=== PATIENT | male | born 1980 | race Caucasian/White ===

== ENCOUNTER 2016-11-17 07:31 | Emergency (ER) | payer SELFPAY ==
[~2016-11-17] VITALS: Ht 185.4 cm; Wt 89.8 kg
[~2016-11-17 07:31] MED LIST: BACT800T5 PO; CEPH500C3 PO
[2016-11-17 07:43] VITALS: BP 139/89; PULSE 124; RESP 18; TEMP 97.4; O2SAT 99
[2016-11-17] MEDS ORDERED: LIDOCAINE 1%/EPINEPHrine 1:100,000 SOLN 30 ML VIAL ONE (07:57)
[2016-11-17] MEDS ORDERED: LIDOCAINE 1%/EPINEPHrine 1:100,000 SOLN 20 ML VIAL INFIL ONE (08:00)
--- NOTE | 2016-11-17 08:16 | PD ---
HPI Chief Complaint: Skin Problem Time Seen by Provider: 07:51 Travel History International Travel<30 days: No Contact w/Intl Traveler<30days: No Traveled to known affect area: No History of Present Illness HPI Patient 36-year-old male admitted IV drug user last used 2 weeks ago presents emergency department with antecubital fossa abscess. Patient states he injected here 2 weeks ago. Denies any fever. States is feeling very anxious because he knows it's going to need to be drained. States she's never had abscesses like this before and he fever denies any systemic symptoms denies any chest pain. States symptoms been present for the past 3 days and rapidly worsening. PFSH Past Medical History Medical History: Denies Significant Hx Diminished Hearing: No Influenza Vaccination: No Social History Alcohol Use: Yes (3 X'S PER WEEK BEER, MIX DRINKS) Tobacco Use: Yes (1 PPD) Substance Use: Yes (HEROIN, COCAINE, WEED) Allergies-Medications (Allergen,Severity, Reaction): Coded Allergies: No Known Allergies (Verified , 11/17/14) Reported Meds & Prescriptions Reported Meds & Active Scripts Active Ibuprofen 600 Mg Tab 600 Mg PO Q6H PRN Keflex (Cephalexin) 500 Mg Cap 500 Mg PO Q6H 10 Days Bactrim DS (Sulfamethoxazole-Trimethoprim) 800-160 Mg Tab 2 Tab PO BID 10 Days Review of Systems Except as stated in HPI: all other systems reviewed are Neg Physical Exam Narrative GENERAL: Well-nourished, well-developed patient. Appears nontoxic and well. SKIN: There is a golf ball sized abscess on the left antecubital fossa, surrounding induration is outlined in ink, there is some erythema as well which does not extend significantly past the induration area. Significant fluctuance. No Osler nodes no splinter hemorrhages. HEAD: Normocephalic. EYES: No scleral icterus. No injection or drainage. NECK: Supple, trachea midline. No JVD or lymphadenopathy. CARDIOVASCULAR: Regular rate and rhythm without murmurs, gallops, or rubs. RESPIRATORY: Breath sounds equal bilaterally. No accessory muscle use. GASTROINTESTINAL: Abdomen soft, non-tender, nondistended. MUSCULOSKELETAL: No cyanosis, or edema. BACK: Nontender without obvious deformity. No CVA tenderness. Data Data Last Documented VS Vital Signs Date Time Temp Pulse Resp B/P Pulse Ox O2 Delivery O2 Flow Rate FiO2 7/15/17 08:50 98 18 128/84 99 21 11/17/16 07:43 97.4 Orders Ed Poc Ultrasound (11/17/16 ) Lidocai-Epi 1%-1:100,000 Inj (Xylocaine- (11/17/16 08:00) Lidocai-Epi 1%-1:100,000 Inj (Xylocaine- (11/17/16 07:57) Ibuprofen (Motrin) (11/17/16 09:00) Wound Culture And Gram Stain (11/17/16 09:00) MDM Medical Decision Making Medical Screen Exam Complete: Yes Emergency Medical Condition: Yes Differential Diagnosis Antecubital abscess, IV drug use, sepsis unlikely. Narrative Course Patient was roomed in the emergency department, initially tachycardic on triage she states she is very anxious as he knows he was going to need to be cut, repeat vital signs showed that a heart rate is closer to normal. Patient after bedside ultrasound was insidious and drained, wound culture was sent. Discussed with the patient to return to emergency department in 48 hours for a wound check removal of packing. Antibiotic are prescribed. Discussed signs symptoms that should prompt earlier return to the ER including fever chest pain or shortness of breath. Her blood understanding and agreement. Discussed need for cessation of IV drug abuse. Recommended following up with [facility]. He is stable for discharge. Procedures Procedure Narrative ULTRASOUND: Bedside ultrasound performed of the left antecubital fossa, shows significant purulent fluid collection measuring approximately 2 x 2 x 2 cm subcutaneously, cobblestoning. There is an underlying vein but the abscess is amenable to ER drainage. INCISION AND DRAINAGE: After all risks benefits competitions were discussed with the patient he verbally consented to the procedure. Patient's left antecubital abscess was prepped with iodine, was infiltrated with 1% with epinephrine to a total of 5 cc, a #11 blade was used to make a incision through the skin, approximately a quarter of a cup of purulent material was obtained, wound culture was obtained and sent. Blunt dissection used to break up loculations. Patient tolerated the procedure quite well, hemostasis achieved and less than 10 cc of blood loss. Was packed with half-inch iodoform and dressed with a clean dressing. Diagnosis Primary Impression: Abscess Additional Instructions: Soap and water to the wound, if the packing falls out leave it out, return to the emergency department in 48 hours for wound check and packing removal. The patient developed fever worsening redness the site return to the emergency department. Change dressing twice per day. Med/Other Pt SpecificInfo: Prescription(s) given Scripts Ibuprofen 600 Mg [id number] Mg PO Q6H PRN (Pain/Inflammation) #20 TAB Ref 0 Prov:Mick Jerome MD 11/17/16 Cephalexin (Keflex)500 Mg Edd025 Mg PO Q6H 10 Days Ref 0 Prov:Mick Jerome MD 11/17/16 Sulfamethoxazole-Trimethoprim (Bactrim DS)800-160 Mg Tab2 Tab PO BID 10 Days Ref 0 Prov:Mick Jerome MD 11/17/16 Disposition: 01 DISCHARGE HOME Condition: Stable Mick Jerome MD Nov 17, 2016 08:16
[2016-11-17] MEDS ORDERED: BACT800T5 PO (08:48)
[2016-11-17] MEDS ORDERED: CEPH-460 PO (08:48)
[2016-11-17] MEDS ORDERED: IBUP-232 PO (08:49)
[2016-11-17 08:50] VITALS: BP 128/84
[2016-11-17] MEDS ORDERED: IBUPROFEN 600 MG TAB PO ONE (09:00)
== END 2016-11-17 08:59 | disposition home or self-care (01) ==
LOC: PHEFT 07:31
DX: L02.414 Cutaneous abscess of left upper limb (principal); B95.4 Other streptococcus as the cause of diseases classified elsewhere; B96.89 Other specified bacterial agents as the cause of diseases classified elsewhere
CPT/HCPCS: 10061; 87070; 87077; 87205

== ENCOUNTER 2017-08-18 14:14 | Emergency (ER) | payer SELFPAY ==
[~2017-08-18] VITALS: Ht 185.4 cm; Wt 86.0 kg
[~2017-08-18 14:14] MED LIST changes: +CEPH-460 PO; -CEPH500C3 PO; +IBUP-232 PO
[2017-08-18 14:20] VITALS: BP 125/69; PULSE 115; RESP 16; TEMP 97.8; O2SAT 95
--- NOTE | 2017-08-18 14:49 | PD ---
HPI Chief Complaint: OD/ Ingestion Time Seen by Provider: 14:32 Travel History International Travel<30 days: No Contact w/Intl Traveler<30days: No Traveled to known affect area: No History of Present Illness HPI 37yo M presents to the ED after heroin overdose. Pt said he injected heroin today and next thing he know, [facility] was at his house. As per triage note, pt was unresponsive with RR of 4 after injecting heroin and 0.4mg of narcan was given and pt responded well. Pt was GCS 15 with RR 14-16 on arrival. Pt is AAOx3 and has no signs of trauma. Pt admits to drinking alcohol and using heroin today and had an episode of vomit. Feels a little nauseous but denies any fever, chest pain, sob, abdominal pain, focal weakness or numbness. PFSH Past Medical History Medical History: Denies Significant Hx Cardiovascular Problems: No Diminished Hearing: No Gastrointestinal Disorders: No Genitourinary: No Musculoskeletal: No Neurologic: No Respiratory: No Tetanus Vaccination: > 5 Years Influenza Vaccination: No Past Surgical History Surgical History: No Previous Surgery Social History Alcohol Use: Yes (3 X'S PER WEEK BEER, MIX DRINKS) Tobacco Use: Yes (1 PPD) Substance Use: Yes (HEROIN, COCAINE, WEED) Allergies-Medications (Allergen,Severity, Reaction): Coded Allergies: No Known Allergies (Verified Adverse Reaction, Unknown, 08/18/17) Reported Meds & Prescriptions Reported Meds & Active Scripts Active No Active Prescriptions or Reported Medications Review of Systems Except as stated in HPI: all other systems reviewed are Neg Physical Exam Narrative GENERAL: 37yo M not in distress. SKIN: Focused skin assessment warm/dry. HEAD: Atraumatic. Normocephalic. EYES: Pupils equal and round. No scleral icterus. No injection or drainage. ENT: No nasal bleeding or discharge. Mucous membranes pink and moist. NECK: Trachea midline. No JVD. CARDIOVASCULAR: Regular rate and rhythm. No murmur appreciated. RESPIRATORY: No accessory muscle use. Clear to auscultation. Breath sounds equal bilaterally. GASTROINTESTINAL: Abdomen soft, non-tender, nondistended. MUSCULOSKELETAL: RUE: No signs of infection where pt injected heroin. NEUROLOGICAL: Awake and alert. No obvious cranial nerve deficits. Motor grossly within normal limits. Normal speech. PSYCHIATRIC: Appropriate mood and affect; insight and judgment normal. Data Data Last Documented VS Vital Signs Date Time Temp Pulse Resp B/P (MAP) Pulse Ox O2 Delivery O2 Flow Rate FiO2 08/18/17 16:31 89 20 145/91 (109) 95 Room Air 08/18/17 14:20 97.8 Orders Orders Ondansetron Inj (Zofran Inj) (08/18/17 15:00) Sodium Chlor 0.9% 1000 Ml Inj (Ns 1000 M (08/18/17 15:00) Electrocardiogram (08/18/17 ) MDM Medical Decision Making Medical Screen Exam Complete: Yes Emergency Medical Condition: Yes Interpretation(s) EKG: Sinus tachycardia at 100bpm. Normal axis. QRS narrow. Differential Diagnosis Heroin overdose vs. polysubstance abuse Narrative Course 37yo M was brought in for heroin overdose after narcan. Pt received narcan about 1:30pm and has been awake since. Pt had episode of vomiting but given zofran and NS IVF. He has been observed in the ED for almost 3 hours and has not needed another dose of narcan. Pt is feeling better and wants to go home. HR improved to 89bpm after NS IVF. Denies any more nausea or abdominal pain. Brother is here with him and return precautions given. Diagnosis Primary Impression: Heroin overdose Qualified Codes: T40.1X1A - Poisoning by heroin, accidental (unintentional), initial encounter Patient Instructions: General Instructions Departure Forms: Tests/Procedures Additional Instructions: Please follow up with your primary care physician. Return to the ED if symptoms worsen. Med/Other Pt SpecificInfo: No Change to Meds Scripts No Active Prescriptions or Reported Meds Disposition: 01 DISCHARGE HOME Condition: Stable SoriaMadison [email or web address] BRICENO Aug 18, 2017 14:49
[2017-08-18] MEDS ORDERED: SODIUM CHLOR 0.9% 1000 ML INJ 1,000 ML IV ONE (15:00)
[2017-08-18] MEDS ORDERED: ONDANSETRON HCL 4 MG/2 ML VIAL IV PUSH ONE (15:00)
[2017-08-18 16:31] VITALS: BP 145/91; PULSE 89; RESP 20; O2SAT 95
[2017-08-18 17:21] VITALS: BP 128/82
--- NOTE | 2017-08-19 10:17 | EKG ---
Date Performed: 08/18/2017 Time Performed: 14:55:12 PTAGE: 37 years EKG: SINUS TACHYCARDIA ABNORMAL RHYTHM ECG NO PREVIOUS TRACING DOCTOR: Mark Lanier Interpretating Date/Time 08/19/2017 10:15:19
== END 2017-08-18 18:39 | disposition home or self-care (01) ==
LOC: PHED 14:14
DX: T40.1X1A Poisoning by heroin, accidental (unintentional), initial encounter (principal); R11.10 Vomiting, unspecified; R00.0 Tachycardia, unspecified; R94.31 Abnormal electrocardiogram [ECG] [EKG]; F17.200 Nicotine dependence, unspecified, uncomplicated
CPT/HCPCS: 93005; 96361; 96374; 99284; J2405; J7030